=== PATIENT | female | born 1995 | race Caucasian/White ===

== ENCOUNTER 2018-04-21 10:49 | Emergency (ER) | payer MEDICAID ==
[~2018-04-21] VITALS: Ht 160 cm; Wt 60.4 kg
[2018-04-21 10:51] VITALS: BP 112/72
== END 2018-04-21 11:32 | disposition home or self-care (01) ==
LOC: ED 11:15
DX: K08.89 Other specified disorders of teeth and supporting structures (principal)
CPT/HCPCS: 99283

== ENCOUNTER 2018-04-28 14:39 | Emergency (ER) | payer MEDICAID ==
[~2018-04-28] VITALS: Ht 160 cm; Wt 59.7 kg
[2018-04-28] MEDS ORDERED: DIPHENHYDRAMINE 50 MG CAPSULE ONE (14:57)
[2018-04-28] MEDS ORDERED: DIPHENHYDRAMINE 25 MG CAPSULE PO ONE (15:00)
[2018-04-28 16:07] VITALS: BP_DIAS 72
[2018-04-28 16:23] VITALS: BP_SYST 107
== END 2018-04-28 16:25 | disposition home or self-care (01) ==
LOC: ED 16:16
DX: L50.0 Allergic urticaria (principal)
CPT/HCPCS: 71046; 99284; J7512; Q0163

== ENCOUNTER 2019-01-07 11:37 | Emergency (ER) | payer MEDICAID ==
[~2019-01-07] VITALS: Ht 160 cm; Wt 58.0 kg
[2019-01-07 11:54] VITALS: BP 131/89
[2019-01-07] MEDS ORDERED: DEXAMETHASONE 4 MG/ML, 1ML PO ONE (12:00)
[2019-01-07] MEDS ORDERED: DEXAMETHASONE 4 MG/ML, 5ML ONE (12:05)
== END 2019-01-07 12:57 | disposition home or self-care (01) ==
LOC: ED 12:51
DX: J02.0 Streptococcal pharyngitis (principal)
CPT/HCPCS: 71046; 87880; 99284; J1100

== ENCOUNTER 2019-03-12 22:22 | Emergency (ER) | payer MEDICAID ==
[~2019-03-12] VITALS: Ht 160 cm; Wt 59.1 kg
--- NOTE | 2019-03-12 22:53 | NUR ---
PT AMBULATED STEADILY TO ROOM FROM LOBBY WITH ASSURANCE AUDITOR. NAD NOTED. PT REPORTS PELVIC/"LOWER ABDOMINAL PAIN" SINCE LAST NIGHT. +N/V/D/URINARY FREQUENCY. DENIES BLOOD IN URINE/VAGINAL BLEEDING OR DC/FEVER. LMP: "ONE WEEK AGO" PT AWARE OF NEED FOR UA, STATES "I CAN'T RIGHT NOW, I ALREADY TRIED". UA CUP/WIPES PROVIDED.
[2019-03-12] MEDS ORDERED: ONDANSETRON 2MG/ML, 2ML ONE (23:17)
[2019-03-12] MEDS ORDERED: HYDROmorphone 1 MG/ML, 1ML VIAL ONE (23:17)
[2019-03-12] MEDS ORDERED: HYDROmorphone 2 MG/ML, 1ML IVPush PRN (23:30)
[2019-03-12] MEDS ORDERED: ONDANSETRON 2MG/ML, 2ML IVPush ONE (23:30)
[2019-03-12] MEDS ORDERED: SODIUM CHLORIDE FLUSH 10ML SYR IVF ONE (23:30)
--- NOTE | 2019-03-12 23:34 | NUR ---
IV ESTBALISHED, LABS DRAWN. PT MEDICATED PER EMAR FOR NAUSEA AND PAIN. O2 2L BY NC APPLIED FOR SUPPORT. FAMILY AT BEDSIDE. BP/SPO2 MONITORING IN PLACE.
[2019-03-12] MEDS ORDERED: HYDROmorphone 1 MG/ML, 1ML VIAL IVPush PRN (23:45)
--- NOTE | 2019-03-13 | NUR ---
PT REPORTS IMPROVEMENT IN PAIN. PT AMBULATED STEADILY TO BATHROOM TO PROVIDE UA. UA COLLECTED AND SENT TO LAB
[2019-03-13 00:21] LABS: MICROSCOPIC NOT IND
[2019-03-13 00:31] LABS: ALANINE AMINOTRANSFERASE 23 U/L (12-78); ALBUMIN 3.5 g/dL (3.4-5.0); ANION GAP 7 mmol/L (5-15); CALCIUM 8.5 mg/dL (8.5-10.1); CHLORIDE 106 mmol/L (98-107); CREATININE 0.72 mg/dL (0.55-1.02)
[2019-03-13 00:36] LABS: ALKALINE PHOSPHATASE 62 U/L (45-117); BILIRUBIN,TOTAL 0.2 mg/dL (0.2-1.0); TOTAL PROTEIN 6.9 g/dL (6.4-8.2)
[2019-03-13 00:41] LABS: CULTURE INDICATED? NO
[2019-03-13] MEDS ORDERED: HYDROmorphone 1 MG/ML, 1ML VIAL ONE (01:20)
[2019-03-13 01:24] VITALS: BP 128/85
--- NOTE | 2019-03-13 01:25 | NUR ---
PT RETURNED FROM CT. REPORTS 04/29 PAIN. PT MEDICATED PER EMAR.
--- NOTE | 2019-03-13 01:59 | NUR ---
PT REPORTS FEELING BETTER. NO N/V NOTED WHILE IN ED. SPO2 >90% ON RA. DC EDUCATION PROVIDED, PT DEMONSTRATES UNDERSTANDING. PT AMBULATED STEADILY TO DC WITH MOTHER AND RN. MOTHER TO TRANSPORT PT HOME.
[2019-03-13] MEDS ORDERED: OMNIPAQUE 350 MG/ML, 100ML BOTTLE ONE (02:02)
== END 2019-03-13 02:02 | disposition home or self-care (01) ==
LOC: ED 23:16
DX: K52.9 Noninfective gastroenteritis and colitis, unspecified (principal); E86.0 Dehydration
CPT/HCPCS: 36415; 74177; 80053; 81003; 83690; 84703; 96374; 96375; 96376; 99284; J1170; J2405; Q9967

== ENCOUNTER 2019-11-25 05:54 | Emergency (ER) | payer MEDICAID ==
[~2019-11-25] VITALS: Ht 160 cm; Wt 60.0 kg
[2019-11-25 06:09] VITALS: BP 120/84
--- NOTE | 2019-11-25 06:16 | NUR ---
Pt to room from [facility], ambulatory with steady gait.
--- NOTE | 2019-11-25 06:19 | NUR ---
[facility]IL[facility] at bedside to evaluate pt.
[2019-11-25] MEDS ORDERED: ALBU8.5H8 INH (06:20)
[2019-11-25] MEDS ORDERED: HYDROcodone/APAP 5/325 TABLET ONE (06:30)
[2019-11-25] MEDS ORDERED: HYDROcodone/APAP 5/325 TABLET PO ONE (06:30)
--- NOTE | 2019-11-25 06:32 | NUR ---
Pt medicated per MAR, denies other needs.
== END 2019-11-25 06:44 | disposition home or self-care (01) ==
LOC: ED 06:35
DX: K08.89 Other specified disorders of teeth and supporting structures (principal); Z88.2 Allergy status to sulfonamides
CPT/HCPCS: 99283

== ENCOUNTER 2020-02-19 03:26 | Emergency (ER) | payer MEDICAID ==
[~2020-02-19] VITALS: Ht 160 cm; Wt 60.6 kg
[~2020-02-19 03:26] MED LIST: ALBU8.5H8 INH
[2020-02-19 03:29] VITALS: BP 125/84
[2020-02-19] MEDS ORDERED: KETOROLAC 30 MG/1 ML IM ONE (04:00)
[2020-02-19 04:05] LABS: BASOPHILS # (AUTO) 0.12 x10^3/uL (0-0.1); BASOPHILS % (AUTO) 1 % (0-1); EOSINOPHILS # (AUTO) 0.32 x10^3/uL (0-0.4); EOSINOPHILS % (AUTO) 4 % (1-7); LYMPHOCYTES # (AUTO) 3.23 x10^3/uL (1-3.4); LYMPHOCYTES % (AUTO) 36 % (22-44); MD NO; MEAN CORPUSCULAR HEMOGLOBIN 29.2 pg (27.0-34.8); MEAN CORPUSCULAR HGB CONC 33.6 g/dL (32.4-35.8); MEAN CORPUSCULAR VOLUME 86.8 fL (80-100); MEAN PLATELET VOLUME 8.8 fL (7.4-10.4); MONOCYTES # (AUTO) 0.64 x10^3/uL (0.2-0.8); MONOCYTES % (AUTO) 7 % (2-9); NEUTROPHILS # (AUTO) 4.63 x10^3/uL (1.8-6.8); NEUTROPHILS % (AUTO) 52 % (42-75); PLATELET COUNT 243 x10^3/uL (130-400); RED BLOOD COUNT 4.65 x10^6/uL (3.82-5.3); RED CELL DISTRIBUTION WIDTH 12.9 % (9.6-15.2)
[2020-02-19 04:13] LABS: ALBUMIN 3.7 g/dL (3.4-5.0); ANION GAP 6 mmol/L (5-15); CALCIUM 8.6 mg/dL (8.5-10.1); CHLORIDE 107 mmol/L (98-107); CREATININE 0.79 mg/dL (0.55-1.02)
[2020-02-19 05:02] LABS: CULTURE INDICATED? YES; HCG UR SG 1.023 (1.003-1.030); MICROSCOPIC AUTO
[2020-02-19] MEDS ORDERED: HYDROmorphone 1 MG/ML, 1ML INJ ONE (05:34)
[2020-02-19] MEDS ORDERED: HYDROmorphone 1 MG/ML, 1ML INJ IM ONE (06:00)
== END 2020-02-19 05:57 | disposition home or self-care (01) ==
LOC: ED 03:43
DX: N83.291 Other ovarian cyst, right side (principal); R10.2 Pelvic and perineal pain
CPT/HCPCS: 36415; 76830; 80048; 81001; 81025; 82040; 85025; 87086; 96372; 99284; J1170